=== PATIENT | male | born 1975 | race Caucasian/White ===

== ENCOUNTER → 2016-09-27 | Outpatient (REF) | payer OTHER ==
[~2016-09-27] MED LIST: ABIL2TAB2 PO; ABIL5TAB5 PO; SERT-138 PO; SERT50TA PO; ZOLO100T PO
== END ==
LOC: M LAB REF 16:57
PROVIDERS: ATTEND Surgery
DX: D48.5 Neoplasm of uncertain behavior of skin (principal)

== ENCOUNTER → 2017-07-09 | Outpatient (REF) | payer BC | LOC: M LAB REF 08:48 | DX: J02.9 Acute pharyngitis, unspecified (principal) | CPT/HCPCS: 87070 ==

== ENCOUNTER → 2018-03-28 | Outpatient (CLI) | payer BC | LOC: M WUC 09:39 | DX: M25.78 Osteophyte, vertebrae (principal); M54.2 Cervicalgia | CPT/HCPCS: 72052 ==

== ENCOUNTER → 2018-09-09 | Outpatient (CLI) | payer BC ==
[~2018-09-09] MED LIST changes: +ABIL1TAB11 PO; +ABIL1TAB13 PO; -ABIL2TAB2 PO; -ABIL5TAB5 PO; +SERT-141 PO; -SERT50TA PO
[2018-09-11 10:10] LABS: DEHYDROEPIANDROSTERONE SULFATE 193.6 ug/dL (102.6-416.3); TESTOSTERONE FREE (DIRECT) 10.4 pg/mL (6.8-21.5)
== END ==
LOC: M WUC 16:58
PROVIDERS: ATTEND Anesthesiology Pain Medicine
DX: E29.1 Testicular hypofunction (principal)

== ENCOUNTER → 2020-03-31 | Outpatient (CLI) | payer SELFPAY | LOC: M LABSMTC 14:17 | PROVIDERS: ATTEND Pediatrics | DX: Z20.828 Contact with and (suspected) exposure to other viral communicable diseases (principal) ==

== ENCOUNTER → 2021-12-15 | Outpatient (CLI) | payer BC ==
[~2021-12-15] MED LIST changes: +ANAS1TAB2; +METO1TAB32 PO; +OXCA300T14; +ROSU20TA5 PO; +[UNRECOGNIZED DRUG - CODE] IL
[2021-12-15 13:57] LABS: HEMATOCRIT 47.3 % (42.0-52.0); HEMOGLOBIN 15.6 g/dl (13.5-17.5); MEAN CORPUSCULAR HEMOGLOBIN 28.2 pg (27.0-33.0); MEAN CORPUSCULAR VOLUME 85.5 fl (80.0-96.0); PLATELET COUNT, AUTOMATED 243 10^3/uL (150-450); RED BLOOD COUNT 5.53 10^6/uL (4.30-6.10); WHITE BLOOD COUNT 7.9 10^3/uL (4.0-10.0)
[2021-12-15 14:40] LABS: PROSTATIC SPECIFIC AG MONITOR 0.04 NG/ML (< 4.00)
== END ==
LOC: M LAB 12:38
PROVIDERS: ATTEND Internal Medicine Endocrinology, Diabetes & Metabolism
DX: E29.1 Testicular hypofunction (principal)

== ENCOUNTER → 2022-01-25 | Outpatient (CLI) | payer BC, OTHER | LOC: M SLEEP 20:00 | PROVIDERS: ATTEND Internal Medicine | DX: G47.33 Obstructive sleep apnea (adult) (pediatric) (principal) ==

== ENCOUNTER → 2022-03-12 | Outpatient (CLI) | payer BC ==
[2022-03-12 10:40] LABS: BLOOD UREA NITROGEN 22 MG/DL (7-18); CALCIUM LEVEL 9.8 MG/DL (8.5-10.1); CARBON DIOXIDE LEVEL 28 MEQ/L (21-32); CHLORIDE LEVEL 105 MEQ/L (98-107); CREATININE FOR GFR 1.13 MG/DL (0.70-1.30); GLOMERULAR FILTRATION RATE > 60.0 (>60); GLUCOSE, FASTING 86 MG/DL (70-100); POTASSIUM SERUM 4.3 MEQ/L (3.5-5.1); SODIUM LEVEL 136 MEQ/L (136-145)
== END ==
LOC: M LAB 09:01
PROVIDERS: ATTEND Urology
DX: R79.89 Other specified abnormal findings of blood chemistry (principal); N39.3 Stress incontinence (female) (male)

== ENCOUNTER → 2022-03-16 | Outpatient (CLI) | payer BC | LOC: M RAD 06:35 | PROVIDERS: ATTEND Urology | DX: R79.89 Other specified abnormal findings of blood chemistry (principal) ==

== ENCOUNTER → 2022-06-15 | Outpatient (CLI) | payer BC | LOC: M LAB 17:12 | PROVIDERS: ATTEND Urology | DX: Z85.46 Personal history of malignant neoplasm of prostate (principal) ==

== ENCOUNTER 2022-07-04 11:17 | Emergency (ER) | payer BC, OTHER ==
[~2022-07-04] VITALS: Ht 188 cm; Wt 109.2 kg
[2022-07-04 12:00] LABS: BASO % 0.6 % (0.0-1.0); EOS # 0.1 10^3/uL (0.0-0.5); EOS % 1.5 % (0.0-3.0); HEMATOCRIT 47.2 % (42.0-52.0); HEMOGLOBIN 15.9 g/dl (13.5-17.5); LYMPH # 1.9 10^3/uL (1.5-5.0); LYMPH % 27.4 % (24.0-44.0); MEAN CORPUSCULAR HGB CONC 33.7 g/dl (32.0-36.5); MONO # 0.7 10^3/uL (0.0-0.8); MONO % 10.6 % (2.0-8.0); NEUTROPHILS # 4.1 10^3/uL (1.5-8.5); NEUTROPHILS % 59.6 % (36.0-66.0); PLATELET COUNT, AUTOMATED 216 10^3/uL (150-450); RED BLOOD COUNT 5.49 10^6/uL (4.30-6.10); WHITE BLOOD COUNT 6.8 10^3/uL (4.0-10.0)
[2022-07-04] MEDS ORDERED: ASPIRIN 81MG CHEW TABLET PO ONE (12:25)
[2022-07-04 12:37] LABS: LIPASE 76 U/L (12-53)
[2022-07-04 12:42] LABS: ALBUMIN 4.6 G/DL (3.2-5.2); ALKALINE PHOSPHATASE 76 U/L (46-116); ALT/SGPT 55 U/L (7.0-40); AST/SGOT 56 U/L (<34); BILIRUBIN,DIRECT 0.1 MG/DL (<0.4); BILIRUBIN,TOTAL 0.5 MG/DL (0.3-1.2); BLOOD UREA NITROGEN 21 MG/DL (9-23); CALCIUM LEVEL 9.3 MG/DL (8.5-10.1); CARBON DIOXIDE LEVEL 29 MMOL/L (20-31); CHLORIDE LEVEL 102 MMOL/L (98-107); CK-MB VALUE MASS 8.8 NG/ML (<3.6); CREATININE FOR GFR 1.06 MG/DL (0.70-1.30); FREE T4 1.21 NG/DL (0.89-1.76); GLOMERULAR FILTRATION RATE > 60.0 (>60); GLUCOSE, FASTING 99 MG/DL (60-100); POTASSIUM SERUM 4.7 MMOL/L (3.5-5.1); SODIUM LEVEL 139 MMOL/L (136-145); THYROID STIMULATING HORMONE 1.289 uIU/ML (0.55-4.78); TOTAL PROTEIN 7.3 G/DL (5.7-8.2)
[2022-07-04 12:46] LABS: CPK CREATINE PHOSPHOKINASE 802 U/L (46-171); MB/CK RELATIVE INDEX 1.09 (< OR =4)
[2022-07-04] MEDS ORDERED: ISOVUE-370 76% 100ML VIAL As Ordered ONE (13:06)
[2022-07-04 13:41] LABS: CK-MB VALUE MASS 8.6 NG/ML (<3.6)
[2022-07-04 13:43] LABS: MB/CK RELATIVE INDEX 1.18 (< OR =4)
[2022-07-04 15:43] LABS: CK-MB VALUE MASS 7.7 NG/ML (<3.6)
[2022-07-04 15:44] LABS: MB/CK RELATIVE INDEX 1.09 (< OR =4)
[2022-07-04 16:15] VITALS: BP 111/64
== END 2022-07-04 16:36 | disposition home or self-care (01) ==
LOC: M ED 11:17
DX: E04.1 Nontoxic single thyroid nodule (principal); R07.9 Chest pain, unspecified; F84.5 Asperger's syndrome; F41.9 Anxiety disorder, unspecified; Z85.46 Personal history of malignant neoplasm of prostate; Z87.891 Personal history of nicotine dependence; Z79.899 Other long term (current) drug therapy
CPT/HCPCS: 70450; 71045; 71275; 74177; 80048; 80076; 81001; 82550; 82553; 83690; 83880; 84439; 84443; 84484; 85025; 93005; 93041; 94760; 99285; Q9967

== ENCOUNTER → 2022-08-29 | Outpatient (CLI) | payer BC, OTHER ==
[~2022-08-29] MED LIST changes: +DICL1GEL3 TOP; +HCTZ PO; +LIDO1PAD13 TOP; +OMEP40CA5; +TRIAM PO
== END ==
LOC: M RAD 13:47
PROVIDERS: ATTEND Internal Medicine
DX: E04.2 Nontoxic multinodular goiter (principal)

== ENCOUNTER → 2023-04-13 | Outpatient (CLI) | payer BC ==
[~2023-04-13] MED LIST changes: +DICL100G10 TOP; -DICL1GEL3 TOP; +METO50TA7; -ROSU20TA5 PO; +ROSU20TA61 PO
[2023-04-13 13:29] LABS: THYROID STIMULATING HORMONE 1.315 uIU/ML (0.55-4.78)
[2023-04-13 13:30] LABS: FREE T4 0.99 NG/DL (0.89-1.76)
== END ==
LOC: M LAB 12:37
PROVIDERS: ATTEND Nurse Practitioner Family
DX: E04.2 Nontoxic multinodular goiter (principal)

== ENCOUNTER → 2023-05-16 | Outpatient (CLI) | payer OTHER, BC | LOC: M ONCR 13:18 | PROVIDERS: ATTEND General Practice | DX: C61 Malignant neoplasm of prostate (principal); R97.21 Rising PSA following treatment for malignant neoplasm of prostate; Z71.2 Person consulting for explanation of examination or test findings; Z79.818 Long term (current) use of other agents affecting estrogen receptors and estrogen levels; Z79.899 Other long term (current) drug therapy; Z90.79 Acquired absence of other genital organ(s) ==

== ENCOUNTER → 2023-08-27 | Outpatient (RCR) | payer OTHER, BC ==
[~2023-08-27] MED LIST changes: +PRED5TA PO; +SAXE1INJ; +ZYTI250T PO
== END ==
LOC: M ONCR 08-16 10:23
PROVIDERS: ATTEND General Practice
DX: Z51.0 Encounter for antineoplastic radiation therapy (principal); C61 Malignant neoplasm of prostate

== ENCOUNTER → 2023-09-27 | Outpatient (RCR) | payer OTHER, BC ==
[~2023-09-27] MED LIST changes: +RELU120T PO
== END ==
LOC: M ONCR 08-28 14:51
PROVIDERS: ATTEND General Practice
DX: Z51.0 Encounter for antineoplastic radiation therapy (principal); C61 Malignant neoplasm of prostate

== ENCOUNTER 2023-10-17 15:00 | Outpatient (RCR) | payer BC, OTHER | END 2023-10-27 | LOC: M ONCR 15:00 | PROVIDERS: ATTEND General Practice | DX: Z51.0 Encounter for antineoplastic radiation therapy (principal); C61 Malignant neoplasm of prostate ==

== ENCOUNTER → 2024-01-16 | Outpatient (CLI) | payer BC, OTHER ==
[~2024-01-16] MED LIST changes: +LACT20EL PO; +PRED5PAK2 PO; -ROSU20TA61 PO; +ROSU20TA86 PO
== END ==
LOC: M ONCR 15:37
PROVIDERS: ATTEND General Practice
DX: C61 Malignant neoplasm of prostate (principal); Z92.3 Personal history of irradiation; Z79.818 Long term (current) use of other agents affecting estrogen receptors and estrogen levels

== ENCOUNTER 2024-03-06 17:50 | Emergency (ER) | payer OTHER ==
[2024-03-06] MEDS ORDERED: METO25TA4 PO (18:12)
[2024-03-06] MEDS ORDERED: VERA120T9 PO (18:12)
[2024-03-06] MEDS ORDERED: ROSU40TA81 PO (18:12)
[2024-03-06] MEDS: ACETAMINOPHEN 325 MG TAB PO ONE (18:45)
[2024-03-06 19:16] VITALS: BP 119/74; TEMP 97.8; O2SAT 99
== END 2024-03-06 19:21 | disposition home or self-care (01) ==
LOC: M ED 17:50 → EDBD 17:50 → M ED 19:21
DX: S00.93XA Contusion of unspecified part of head, initial encounter (principal); V40.5XXA Car driver injured in collision with pedestrian or animal in traffic accident, initial encounter; Y92.9 Unspecified place or not applicable; Y93.9 Activity, unspecified; Y99.9 Unspecified external cause status; E78.5 Hyperlipidemia, unspecified; K21.9 Gastro-esophageal reflux disease without esophagitis; I10 Essential (primary) hypertension; Z87.820 Personal history of traumatic brain injury; Z79.899 Other long term (current) drug therapy; Z88.8 Allergy status to other drugs, medicaments and biological substances

== ENCOUNTER → 2024-07-31 | Outpatient (CLI) | payer BC, OTHER ==
[~2024-07-31] MED LIST changes: +METO25TA4 PO; +ROSU40TA81 PO; +VERA120T9 PO
[2024-07-31 15:49] LABS: BASO % 0.7 % (0.0-1.0); EOS # 0.2 10^3/uL (0.0-0.5); EOS % 3.5 % (0.0-3.0); LYMPH # 0.7 10^3/uL (1.5-5.0); MEAN CORPUSCULAR HEMOGLOBIN 29.3 pg (27.0-33.0); MEAN CORPUSCULAR HGB CONC 33.3 g/dl (32.0-36.5); MEAN CORPUSCULAR VOLUME 87.8 fl (80.0-96.0); MONO # 0.6 10^3/uL (0.0-0.8); MONO % 10.3 % (2.0-8.0); NEUTROPHILS # 4.2 10^3/uL (1.5-8.5); NEUTROPHILS % 73.3 % (36.0-66.0); PLATELET COUNT, AUTOMATED 197 10^3/uL (150-450); RED BLOOD COUNT 4.44 10^6/uL (4.30-6.10); WHITE BLOOD COUNT 5.7 10^3/uL (4.0-10.0)
[2024-07-31 16:08] LABS: ALBUMIN 4.2 G/DL (3.2-5.2); ALKALINE PHOSPHATASE 93 U/L (40-129); ALT/SGPT 33 U/L (7.0-40); AST/SGOT 25 U/L (<34); BILIRUBIN,TOTAL 0.5 MG/DL (0.3-1.2); BLOOD UREA NITROGEN 19 MG/DL (9-23); CALCIUM LEVEL 9.5 MG/DL (8.5-10.1); CARBON DIOXIDE LEVEL 30 MMOL/L (20-31); CHLORIDE LEVEL 105 MMOL/L (98-107); CREATININE FOR GFR 0.81 MG/DL (0.70-1.30); GLOMERULAR FILTRATION RATE > 60.0 (>56); GLUCOSE, FASTING 90 MG/DL (60-100); POTASSIUM SERUM 4.2 MMOL/L (3.5-5.1); SODIUM LEVEL 142 MMOL/L (136-145)
== END ==
LOC: M LAB 15:15
PROVIDERS: ATTEND Specialist
DX: C61 Malignant neoplasm of prostate (principal)

== ENCOUNTER → 2024-12-21 | Outpatient (CLI) | payer BC, OTHER ==
[~2024-12-21] MED LIST changes: +BENZ200C70 PO; +CIPR-249 PO
== END ==
LOC: M WHC 09:58
PROVIDERS: ATTEND Internal Medicine Hematology & Oncology
DX: M81.0 Age-related osteoporosis without current pathological fracture (principal)